=== PATIENT | male | born 1990 | race Caucasian/White ===

== ENCOUNTER 2020-11-17 02:34 | Day surgery (SDC) | payer OTHER, SELFPAY ==
[2020-11-10 16:22] VITALS: BMI 26.4
[2020-11-17] VITALS (8 sets, daily range): BP systolic 107–129; BP diastolic 58–73; PULSE 54–63; RESP 13–16; TEMP 36.4; O2SAT 98–100
[2020-11-17] MEDS: LACTATED RINGERS 1,000 ML 30 ML IV CONT ×2 (06:30→08:03)
--- NOTE | 2020-11-17 06:48 | P.PNAN_ITS ---
Anes - Initial Pre Proc Eval Procedure: Operation Date: 11/17/20 07:30 Proposed Procedures p Bilateral Vasectomy, Possible Scrotal Exploration - Damian Lopes MD Date/Time: 11/17/20 06:48 Surgeon: Damian Lopes MD Pre Op Diagnosis: Sterilization Patient Data Age: 30 Gender: M Height: 1.85 m Weight: 90.72 kg Allergies Allergy/AdvReac Type Severity Reaction Status Date / Time No Known Allergies Allergy Verified 11/10/20 16:55 Home Medications Medication Instructions Recorded Confirmed Type No Home Medications 11/10/20 11/10/20 History Patient hx anesthesia problems: none Family hx anesthesia problems: none [facility] Surgical History Surgical History (Updated 11/17/20 @ 06:49 by Richard Aburto MD) H/O arthroscopic knee surgery S/P orchiopexy Social History Social History Smoking status: Never smoker Living arrangements: with family Spiritual care concerns: No Anes - Eval Final PreProcedure Day of Procedure 11/17/20 06:48 Patient weight: normal Heart: regular rate and rhythm Lungs: clear to auscultation Airway: Mallampati scale class 1 Neurological: alert and oriented Last oral intake: >/= 8 hours ASA classification: I Emergent: no Anesthetic plan: proceed Anesthesia type and monitoring: general LMA and standard monitoring Informed Consent: The patient's anesthetic plan and its attendant risks and benefits were discussed with the patient/family/POA. Questions were solicited and answers provided to the satisfaction of the patient/family/POA.
--- NOTE | 2020-11-17 07:09 | WPDHPUPDATE1 ---
History and Physical Update Update Date/Time: 11/17/20 07:09 History and Physical has been reviewed, including an updated exam of the patient. There are NO changes in the patient's condition. Risks, benefits, and alternatives have been discussed and questions answered. Patient agrees to proceed with procedure.
[2020-11-17] MEDS: ceFAZolin 2 GM/D5W 50 ML 2 GM/50 ML BAG IVPB (07:21)
--- NOTE | 2020-11-17 07:59 | W.PM.PROC2 ---
Procedure Note - Detailed Date of Procedure 11/17/20 Pre-op Diagnosis Sterilization Post-op Diagnosis same Procedure Performed Bilateral vasectomy Surgeon Damian Lopes MD Anesthesia general Description of Procedure Patient is taken the operative suite correctly identified. Once anesthesia was obtained was prepped draped usual sterile fashion. Small transverse incision was made after the right vas was isolated. The vas was transected with a segment removed. The ends were fulgurated. We ligated the ends using 3-0 chromic buried the. 1% lidocaine was used for local anesthetic in addition. Patient has had a prior left orchiopexy making it difficult to palpate the left vas in the office. We were able to identify it at this point. It was somewhat small and atrophic in nature. Segment of it was excised with the ends fulgurated ligated and buried he also. This cord also was anesthetized with 1% lidocaine. Skin was then anesthetized 1% lidocaine. 3-0 chromic was used to close the skin. Patient tolerated procedure well without any complications and was taken recovery stable condition. Given standard post vasectomy instructions. Drains No Packing No Pathology yes Complications No immediate complications Condition stable Disposition PACU
== END 2020-11-17 09:27 | disposition home or self-care (01) ==
PROVIDERS: PCP Internal Medicine Infectious Disease; Visit Provider Urology
PROC: (CPT 55250; principal; 2020-11-17 07:30)
DX: Z30.2 Encounter for sterilization (principal)
CPT/HCPCS: 55250; 88300; A9270; J0690; J1100; J2250; J2405; J2704; J3010; J7120